=== PATIENT | female | born 1985 | race Asian ===

== ENCOUNTER 2017-12-06 17:40 | Emergency (ER) | payer MEDICAID ==
[~2017-12-06] VITALS: Ht 149.9 cm; Wt 61.2 kg
[2017-12-06] MEDS ORDERED: Percocet 5-3251 EACH PO (19:57)
== END 2017-12-06 20:08 | disposition home or self-care (01) ==
LOC: ER 17:40
DX: S54.8X Injury of other nerves at forearm level (principal); Z23 Encounter for immunization; Z91.030 Bee allergy status; F17.200 Nicotine dependence, unspecified, uncomplicated; W25.XXXA Contact with sharp glass, initial encounter
CPT/HCPCS: 13121; 13122; 73090; 90471; 90714; 99284

== ENCOUNTER 2020-08-29 12:48 | Inpatient (IN) | payer OTHER ==
[~2020-08-29] VITALS: Ht 149.9 cm; Wt 71.9 kg
[~2020-08-29 12:48] MED LIST: Percocet 5-3251 EACH PO
[2020-08-29 13:22] LABS: BASOPHILS ABSOLUTE AUTO 0.06 K/mm3 (0.00-0.23); BASOPHILS PERCENT AUTO 1 % (0-2); EOSINOPHILS ABSOLUTE AUTO 0.07 K/mm3 (0.00-0.68); EOSINOPHILS PERCENT AUTO 1 % (0-6); Hematocrit 43.9 % (33.0-51.0); Hemoglobin 13.8 g/dL (11.5-16.0); IMMATURE GRAN ABSOLUTE AUTO 0.05 K/mm3 (0.00-0.10); IMMATURE GRAN PERCENT AUTO 1 % (0-1); LYMPHOCYTES ABSOLUTE AUTO 2.96 K/mm3 (0.84-5.20); LYMPHOCYTES PERCENT AUTO 27 % (21-46); MONOCYTES ABSOLUTE AUTO 0.62 K/mm3 (0.16-1.47); MONOCYTES PERCENT AUTO 6 % (4-13); Mean Corpuscular HGB 22.2 pg (26.0-34.0); Mean Corpuscular HGB Conc 31.4 g/dL (31.5-36.5); Mean Corpuscular Volume 71 fL (80-100); Mean Platelet Volume 10.5 fL (9.1-12.4); NEUTROPHILS ABSOLUTE AUTO 7.31 K/mm3 (1.96-9.15); NEUTROPHILS PERCENT AUTO 66 % (41-73); Platelet Count 406 K/mm3 (150-400); RDW Coefficient Variation 15.8 % (11.7-14.2); Red Blood Cell Count 6.22 M/mm3 (3.80-5.20); White Blood Cell Count 11.07 K/mm3 (4.00-11.30)
[2020-08-29] MEDS ORDERED: Catapres0.2 MG PO (13:22)
[2020-08-29] MEDS ORDERED: METO50ER PO (13:22)
[2020-08-29] MEDS ORDERED: LISI20 PO (13:22)
[2020-08-29 13:50] LABS: Alanine Aminotransfer (ALT/SGP 53 U/L (12-78); Albumin, Blood 3.6 g/dL (3.4-5.0); Albumin/Globulin Ratio 0.9 (0.8-1.8); Alk Phos 78 U/L (50-136); Anion Gap 6 mmol/L (6-16); Aspartate Aminotrans (AST/SGOT 38 U/L (12-37); Bilirubin, Total 1.2 mg/dL (0.1-1.0); Blood Urea Nitrogen 17 mg/dL (8-24); Bun/Creatinine Ratio 27.6 (12.0-20.0); CO2, Blood 26 mmol/L (21-32); Calcium, Blood 8.8 mg/dL (8.5-10.1); Chloride, Blood 103 mmol/L (98-108); Creatinine, Blood 0.62 mg/dL (0.40-1.00); Ethanol (Alcohol), Blood, Med <3 mg/dL; Globulin, Blood 4.1 g/dL (2.2-4.0); Glomerular Filtration Rate >60 (60-); Glucose, Blood 230 mg/dL (70-99); Potassium, Blood 4.2 mmol/L (3.5-5.5); Salicylate <1.7 mg/dL (2.8-20.0); Sodium, Blood 135 mmol/L (136-145); Thyroxine (T4) 10.6 ug/dL (4.8-13.9); Total Protein, Blood 7.7 g/dL (6.4-8.2)
[2020-08-29 13:52] LABS: Acetaminophen, Random <2.0 ug/mL (10.0-30.0)
[2020-08-29 14:13] LABS: U Amphetamine Screen DETECTED; U Barbituate Screen Not Detected; U Benzodiazapine Screen Not Detected; U Buprenorphine Screen Not Detected; U Cannabinoids Screen Not Detected; U Cocaine Screen Not Detected; U Methadone Screen Not Detected; U Methamphetamine Screen DETECTED; U Opiates Screen Not Detected; U Oxycodone Screen Not Detected; U Phencyclidine Screen Not Detected; U Propoxyphene Screen Not Detected
[2020-08-29] MEDS ORDERED: AMLO5 PO (15:56)
--- NOTE | 2020-08-29 18:00 | NUR ---
INITIAL ASSESSMENT PATIENT ARRIVED TO UNIT AT 1702. PATIENT CALM, COOPERATIVE. PATIENT LETHARGIC BUT RESPONDS EASILY TO VERBAL STIMULI. PATIENT ALERT AND ORIENTED X 4. PATIENT STATES THAT SHE DID WANT TO KILL HERSELF BECAUSE "IT WAS JUST A REALLY HARD DAY". PATIENT STATES THAT SHE HAS BEEN DEPRESSED FOR A WHILE AND IS SAD BECAUSE SHE HAS TO LEAVE HER KIDS TO GET BETTER (GO TO [place] WHERE HER MOM IS). NURSE ASKED PATIENT IF SHE WOULD WANT TO TRY TO KILL HERSELF IF SHE WERE ABLE TO LEAVE THE HOSPITAL RIGHT NOW AND SHE ANSWERS "NO". PATIENT AFEBRILE. DENIES PAIN. PATIENT SATTING 90% AND GREATER ON RA. LUNGS CLEAR T/O. PATIENT IN SB WITH BBB. HR 40S TO 50S. SBP 160S TO 180S. GI WNL. NO VOID SINCE ARRIVING FROM ER. SKIN APPEARS C/D/I. LR INFUSING AT 50 MLS/ HOUR. POISON CONTROL RECOMMENDED ATROPINE FOR BRADYCARDIA, FLUIDS FOR HYPOTENSION, AND NITRO FOR REBOUND HTN. ALL ADMIT DATA INCOMPLETE EXCEPT MED LIST. BED LOW, CALL LIGHT IN REACH. PATIENT ORIENTED TO UNIT, ROOM AND CALL LIGHT. 1:1 SITTER PRESENT. WILL BE GIVING REPORT TO ONCOMING FITNESS AND WELLNESS MANAGER NURSE SHORTLY.
--- NOTE | 2020-08-29 19:34 | NUR ---
ASSUMPTION OF CARE PT SLEEPING IN BED, DIFFICULT TO AROUSE BUT ORIENTED TO SELF, LOCATION, EVENT AND FOLLOWING COMMANDS WHEN AWAKENED. PT DENIES SI, 1:1 SITTER AT DOORWAY. O2 SATURATIONS> 95% ON RA. MONITOR SHOWS SINUS RHYTHM WITH HR 40'S, HTN NOTED WITH SBP 160'S. PT DENIES GI/ ISSUES AT THIS TIME. PT MCKINNEY AND REPOSITION SELF IN BED. PT REPORTS FEELING COLD, TEMPERATURE TURNED UP ON THERMOSTAT, PT DECLINES WARM BLANKET, DENIES ANY OTHER NEEDS AT THIS TIME. CALL SEJAL HERRERA.
[2020-08-30 04:11] LABS: Anion Gap 9 mmol/L (6-16); Blood Urea Nitrogen 16 mg/dL (8-24); Bun/Creatinine Ratio 24.6 (12.0-20.0); CO2, Blood 24 mmol/L (21-32); Calcium, Blood 9.2 mg/dL (8.5-10.1); Chloride, Blood 106 mmol/L (98-108); Creatinine, Blood 0.65 mg/dL (0.40-1.00); Glomerular Filtration Rate >60 (60-); Glucose, Blood 107 mg/dL (70-99); Potassium, Blood 4.2 mmol/L (3.5-5.5); Sodium, Blood 139 mmol/L (136-145)
[2020-08-30 04:13] LABS: Hematocrit 42.4 % (33.0-51.0); Hemoglobin 13.3 g/dL (11.5-16.0); Mean Corpuscular HGB 21.8 pg (26.0-34.0); Mean Corpuscular HGB Conc 31.4 g/dL (31.5-36.5); Mean Corpuscular Volume 70 fL (80-100); Mean Platelet Volume 10.7 fL (9.1-12.4); Platelet Count 397 K/mm3 (150-400); RDW Coefficient Variation 14.9 % (11.7-14.2); RDW Standard Deviation 35.6 fL (35.1-46.3); Red Blood Cell Count 6.09 M/mm3 (3.80-5.20); White Blood Cell Count 12.38 K/mm3 (4.00-11.30)
--- NOTE | 2020-08-30 04:57 | NUR ---
SHIFT SUMMARY PT SLEPT T/O SHIFT, AWOKE THIS AM VERY FRUSTRATED/ANGRY/ANXIOUS, CRYING, STS SHE WANTS TO GO HOME TO HER KIDS, ASKED NURSE TO CALL HER FRIEND ZAHRAA, INFORMED PT OF THE TIME ([id number]) AND PT STS "OH I DIDN'T REALIZE THAT." OFFERED WATER, PT ACCEPTED AND FELL BACK TO SLEEP. PT REMAINS ON RA WIHT O2 SATURATIONS> 90%, MONITOR SHOWS SINUS RHYTHM WITH HR 40'S-50'S, BP STABLE, HYDRALAZINE x1 THIS SHIFT, SEE MAR. PT DENIES SI, 1:1 SITTER REMAINS AT DOOR. PT REPOSITION SELF IN BED, CALL LIGHT TRACIE HERRERA.
--- NOTE | 2020-08-30 08:09 | NUR ---
INITIAL ASSESSMENT PATIENT WAKES EASILY TO VERBAL STIMULI. PATIENT ALERT AND ORIENTED X 4, AFEBRILE. DENIES PAIN. PATIENT CALM AND COOPERATIVE. PATIENT CURRENTLY DENYING SI. PATIENT AMBULATED WELL TO TOILET THIS AM PER REPORT. PATIENT SATTING 90% AND GREATER ON RA. LUNGS CLEAR T/O. NO COUGH NOTED. PATIENT IN SB TO SR, HR 50S TO 60S. SBP LOW 100S TO 140S. GI WNL. WNL. SKIN APPEARS WNL. LR INFUSING AT 50 MLS/ HOUR. 1:1 SITTER PRESENT. NO COMPLAINTS AT THIS TIME. BED LOW, CALL LIGHT IN REACH. WILL CONTINUE TO MONITOR PATIENT FREQUENTLY THROUGHOUT SHIFT.
--- NOTE | 2020-08-30 09:00 | NUR ---
DR. SWEET UPDATED ON PATIENT STATUS. DOCTOR INFORMED THAT NURSE RECEIVED REPORT THAT POISON CONTROL STATED PATIENT COULD HAVE BRADYCARDIA FOR 2 OR 3 DAYS BUT COULD BE DISCHARGED WITH BRADYCARDIA LONG ASYMPTOMATIC.
--- NOTE | 2020-08-30 10:21 | NUR ---
POISON CONTROL CALLED TO CHECK IN. NO FURTHER RECOMMENDATIONS AT THIS TIME.
--- NOTE | 2020-08-30 12:07 | NUR ---
PATIENT SITTING UP EATING LUNCH IN BED. PATIENT AFEBRILE. NO COMPLAINTS OF PAIN. BLOOD SUGAR OF 115; NO COVERAGE INDICATED. HR 40S TO 60S. SBP LOW 100S TO 130S. NO ACUTE CHANGES TO NOTE ON AT THIS TIME. WILL CONTINUE TO MONITOR.
--- NOTE | 2020-08-30 12:36 | NUR ---
Suicide Safety Plan completed with interview at 1100 today in ICU14. 1:1 was dc'd and patient on camera for monitoring. Pt reports took 5 of hr BP meds, as she felt hopeless regarding leaving her children. She has 3 children, 13, 15, 16. Further questioning revealed she did not have to leve her children, but was planning to go to [place] to be with ehr parents for her heart surgery. She relayed she did nt want to be a burden to children or boyfriend. She and boyfriend together for 20 years with the 3 children, never . She discovered she had heart issue when she "swelled up from ankles to chest". She has seen pphysician that indicates surgery required. Pt recent history indicates depression symptoms--isolating in her room, low energy, lack of interest in usual activities, frequent crying. She reports family has encouraged her to seek help with meds, but she is fearful of the meds. Extensive education given re: depression symptoms and recovery. Pt reports what she did was "stupid", and will speak with consult psychiatrist re: meds. Pt did tell her spouse she took pills, and he called 911 Discussed judgement and decision making may be impaired by depression, and allow to time for decisison on moving, as this triggered her attempt. Reviewed other choices than OD for Safety Plan and reviewed crisis numbers. Patient uses meth 1x month or so. Appears she has used as self treatment for a day to give her energy to engage in activities she used to enjoy--scrapbooking, [employer], photography. She denies use of other substances. HP-C, Director Behavior Health
--- NOTE | 2020-08-30 16:21 | NUR ---
PATIENT AFEBRILE. NO COMPLAINTS OF PAIN. HR 40S TO 50S. SBP 90S TO LOW 100S. NO ACUTE CHANGES TO NOTE ON AT THIS TIME. WILL CONTIUE TO MONITOR.
--- NOTE | 2020-08-30 16:26 | NUR ---
SHIFT ASSESSMENT PATIENT HAS REMAINED ALERT AND ORIENTED X 4, AFEBRILE. PATIENT HAS BEEN CALM, WITHDRAWN, DEPRESSED. PATIENT DENYING SI AT THIS TIME. PATIENT HAS HAD NO COMPLAINTS OF PAIN. PATIENT HAS REMAINED SATTING 90% AND GREATER ON RA. PATIENT HAS REMAINED IN SB TO SR, HR 40S TO 60S. SBP 90S TO 140S. NO BM THIS SHIFT. WNL. NO CHANGES TO SKIN. PATIENT HAS BEEN REPOSITIONING SELF IN BED. LR AT 50 MLS/ HOUR THIS AM; PATIENT NOW SALINE LOCKED. PATIENT REFUSED BED BATH. CONFIRMED WITH DR. ALONZO THAT HE WILL BE HERE TODAY TO SEE PATIENT. PATIENT WILL BE TRANSFERRING TO MEDICAL FLOOR, ROOM 347 SHORTLY.
--- NOTE | 2020-08-30 16:40 | NUR ---
PATIENT SUCCESSFULLY TRANSFERRED TO MEDICAL FLOOR. ALL BELONGINGS SENT WITH PATIENT. PATIENT'S SIGNIFICANT OTHER NOTIFIED OF TRANSFER.
--- NOTE | 2020-08-30 16:45 | NUR ---
PT CAME IN FROM ICU 14. PT IN BED AND LOOKING OUTSIDE THE WINDOW. PT DENIES ACTUALS THOUGHTS OF KILLING HERSELF AT THIS TIME
--- NOTE | 2020-08-30 17:00 | NUR ---
TRANSFER PT CAME IN FROM ICU 14. RECEIVED REPORT FROM TERRELL CARLSON. PT ADMITTED FOR SI. PT TOOK ANTI-HTN HOME MEDS. PT CAME IN WITH LOW HR 3O'S TO 40'S, AND HTN. PT HAS BEEN DEALING WITH DEPRESSION FOR AWHILE NOW; NO DEPRESSION MEDS PER ETL APPLICATION DEVELOPER. PT ALSO STATED THAT SHE ATTEMPTED SUICIDE BECAUSE OF HER NEW ONSET HEART PROBLEMS- SEE NOTES. DURING TRANSFER, PT STATED THAT SHE DOES NOT HAVE ANY THOUGHTS OF KILLING HERSELF AND THAT SHE HAS THREE KIDS THAT ARE WAITING FOR HER AT HOME. AWAITS FOR DR. ECHAVARRIA CONSULT. 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 AND Q6 CBG. PT ORIENTED TO ROOM. AND ELECTRICIAN SUPERVISOR SUBSTATION DID SI ROOM ASSESSMENT. THIS NURSE ALSO ASSESSED THE PT FOR SI PER POLICY. BED IS IN THE LOWEST POSITION AND CALL LIGHT WITHIN REACH
[2020-08-30] MEDS ORDERED: SERT50 PO (18:19)
[2020-08-30] MEDS ORDERED: HYDR10 PO (18:19)
--- NOTE | 2020-08-30 18:38 | NUR ---
PT DISCHARGED TO HOME AND WALKED WITH THIS NURSE. PT CALLED BOYFRIEND TO PICK HER UP. PT EDUCATED ABOUT SUBSTANCE ABUSE, PT GIVEN NUMBER TO CALL IN TERMS OF HER SI AND DEPRESSION. PT STATED THAT SHE WANTS TO GO HOME, AND WON'T EVER TRY TO KILL HERSELF AGAIN, BECAUSE SHE HATES HOSPITAL. PT EDUCATED ABOUT METH ABUSE AND PREVENTION OF SI BY HAVING A COPING MECHANISM AND CONTACTING THE PCP. PT STATED SHE WILL FU WITH PCP TOMORROW. PT MEDS FAXED TO [facility]. DR ECHAVARRIA SEEN THE PT AND STATED THAT THE PT IS CLEARED TO GO HOME, PT WILL FU WITH OTHER PROVIDER OUTPATIENT. PT EDUCATED ABOUT SUBSTANCE ABUSE THAT WILL MAKE HER HEART WORSE- PT STATED UNDERSTANDING AND STATED SCARED TO . PT PROVIDED DC PACKET AND NUMBERS TO CALL IF SHE NEEDS.
== END 2020-08-30 18:37 | disposition home or self-care (01) | DRG 918 ==
LOC: ER 12:48 → EOR 12:49 → ER 12:49 → ERHOLD 15:22 → ICUW 15:22 → MEDS 08-30 16:39
PROVIDERS: Emergency Medicine; ADMIT Internal Medicine
DX: T44.7X2A Poisoning by beta-adrenoreceptor antagonists, intentional self-harm, initial encounter (principal); I50.32 Chronic diastolic (congestive) heart failure; F33.9 Major depressive disorder, recurrent, unspecified; Y92.009 Unspecified place in unspecified non-institutional (private) residence as the place of occurrence of the external cause; I11.0 Hypertensive heart disease with heart failure; I27.21 Secondary pulmonary arterial hypertension; E11.9 Type 2 diabetes mellitus without complications; F17.210 Nicotine dependence, cigarettes, uncomplicated
CPT/HCPCS: 36415; 80048; 80053; 81025; 82947; 83036; 83735; 84436; 84443; 85025; 85027; 93005; 93010; 96372; 99285-25; A9270; G0480; J0360; J1650; J7120